=== PATIENT | male | born 1980 | race Hispanic/Latino ===

== ENCOUNTER 2018-05-03 10:05 | Emergency (ER) | payer BC ==
[2018-05-03 10:12] VITALS: BP 137/81; PULSE 68; RESP 18; TEMP 97.9; O2SAT 100; BMI 25.7
--- NOTE | 2018-05-03 10:39 | ED PDOC ---
Arrival/HPI - General Chief Complaint: Chest Pain Time Seen by Provider: 05/03/18 10:13 Historian: Patient - History of Present Illness Narrative History of Present Illness (Text): 05/03/18 10:35 37 year old male, with no significant past medical history, presents to the ED for evaluation of intermittent chest pain since yesterday. Patient states he was leaning over his child's crib and experienced an "electric shock" like chest pain lasting for a few seconds. Patient informs intermittent episodes of similar chest pain since then. Patient reports unknown family history of cardiac disease in father but denies any history of hypertension, or diabetes in self. Patient states he did not have his cholesterol level evaluated in the past. Patient denies any other associated somatic complaints. Patient denies any nausea, vomit ing, diaphoresis, dizziness or any other complaints. Patient admits to drinking wine daily but denies any smoking or illicit drug use. PMD: Dr. Thomas Time/Duration: 24 hours Symptom Onset: Gradual Symptom Course: Intermittent Activities at Onset: Light Context: Home Associated Symptoms (Text): 05/03/18 12:45 Intermittent electric shocklike chest pain since yesterday. Lasts on the order of seconds. He is currently pain-free. No dyspnea. No diaphoresis. No nausea or vomiting. No dizziness or lightheadedness. No hypertension or diabetes. There is an unknown family history of cardiac disease in his father, as he is estranged from his father. No smoking. He is comfortable other than being anxious at this time. Past Medical History - Provider Review Nursing Documentation Reviewed: Yes - Infectious Disease Hx of Infectious Diseases: None - Gastrointestinal Hx Gastroesophageal Reflux: Yes - Psychiatric Hx Substance Use: Yes - Surgical History Other/Comment: toe surgery - Anesthesia Hx Anesthesia: Yes Hx Anesthesia Reactions: No Hx Malignant Hyperthermia: No Family/Social History - Physician Review Nursing Documentation Reviewed: Yes Family/Social History: Unknown Family HX Smoking Status: Never Smoked Hx Alcohol Use: Yes Frequency of alcohol use: Socially Hx Substance Use: Yes Substance used: marijuana Allergies/Home Meds Allergies/Adverse Reactions: Allergies No Known Allergies Allergy (Verified 05/03/18 10:11) Home Medications: Home Meds Medication Instructions Recorded Confirmed Omeprazole Magnesium [Prilosec Otc] 1 tab PO PRN PRN 05/03/18 05/03/18 Review of Systems - Physician Review All systems were reviewed & negative as marked: Yes - Review of Systems Constitutional: absent: Fatigue, Fevers Respiratory: absent: SOB Cardiovascular: Chest Pain. absent: Palpitations, Syncope Gastrointestinal: absent: Abdominal Pain, Nausea, Vomiting Musculoskeletal: absent: Back Pain, Neck Pain Neurological: absent: Headache, Dizziness, Focal Weakness Endocrine: absent: Diaphoresis Physical Exam Vital Signs Reviewed: Yes Vital Signs Temp Pulse Resp BP Pulse Ox 05/03/18 10:12 97.9 F 68 18 137/81 100 Temperature: Afebrile Blood Pressure: Normal Pulse: Regular Respiratory Rate: Normal Appearance: Positive for: Other (Anxious appearing) Pain Distress: None Mental Status: Positive for: Alert and Oriented X 3 - Systems Exam Head: Present: Atraumatic, Normocephalic Pupils: Present: PERRL Extroacular Muscles: Present: EOMI Conjunctiva: Present: Normal Mouth: Present: Moist Mucous Membranes Pharnyx: No: ERYTHEMA, EXUDATE, TONSILS ENLARGED Respiratory/Chest: Present: Clear to Auscultation, Good Air Exchange. No: Respiratory Distress, Accessory Muscle Use, Tender to Palpation Cardiovascular: Present: Regular Rate and Rhythm, Normal S1, S2. No: Murmurs Abdomen: No: Tenderness, Distention, Peritoneal Signs Upper Extremity: Present: Normal Inspection. No: Cyanosis, Edema Lower Extremity: Present: Normal Inspection. No: Edema Neurological: Present: GCS=15, CN II-XII Intact, Speech Normal, Motor Func Grossly Intact Skin: Present: Warm, Dry, Normal Color. No: Rashes Psychiatric: Present: Alert, Oriented x 3, Anxious Medical Decision Making ED Course and Treatment: 05/03/18 10:41 Impression: 37 year old male presents to the Emergency department for evaluation of intermittent chest pain. Plan: -- EKG -- Labs -- Chest X-ray -- Aspirin -- Urinalysis -- Reassess and disposition Prior Visits: Notes and results from previous visits were reviewed. Progress Notes: 05/03/18 11:30 Chest X-ray, reviewed by radiologist, shows no active disease. 05/03/18 12:47 EKG shows normal sinus rhythm rate approximately [address] or T wave changes and a sinus arrhythmia. 05/03/18 12:47 Discussed in detail with Dr. Thomas who will follow up as an outpatient. Doubt that this chest pain is cardiac in nature. He will send the patient for stress test and cardiology consult. Daily baby aspirin. - Scribe Statement The provider has reviewed the documentation as recorded by the Scribe Sandra Tsai. All medical record entries made by the Scribe were at my direction and personally dictated by me. I have reviewed the chart and agree that the record accurately reflects my personal performance of the history, physical exam, medical decision making, and the department course for this patient. I have also personally directed, reviewed, and agree with the discharge instructions and disposition. Disposition/Present on Arrival - Present on Arrival Any Indicators Present on Arrival: No History of DVT/PE: No History of Uncontrolled Diabetes: No Urinary Catheter: No History of Decub. Ulcer: No History Surgical Site Infection Following: None - Disposition Have Diagnosis and Disposition been Completed?: Yes Diagnosis: Chest pain Disposition: HOME/ ROUTINE Disposition Time: 12:48 Patient Plan: Discharge Condition: GOOD Discharge Instructions (ExitCare): Chest Pain (ED) Additional Instructions: Daily baby aspirin. Follow-up with Dr. Thomas for cardiology consult and outpatient EST. Follow-up in ER as needed. Referrals: Kermit Thomas, [Primary Care Provider] - Follow up with primary Forms: [facility] (Pashto), WORK NOTE
[2018-05-03 11:00] LABS: ALB/GLOB RATIO 1.3 (1.1-1.8); ALBUMIN 4.9 g/dL (3.0-4.8); ALT/SGPT 44 U/L (7-56); AST/SGOT 42 U/L (17-59); BASO # 0.02 K/mm3 (0.0-2.0); BASO % 0.3 % (0.0-3.0); BLOOD UREA NITROGEN 19 mg/dL (7-21); CALCIUM 9.9 mg/dL (8.4-10.5); EOS # 0.1 (0.0-0.7); EOS % 1.1 % (1.5-5.0); GFR NON-AFRICAN AMERICAN > 60; HEMOGLOBIN 16.7 g/dL (14.0-18.0); LYMPH # 1.9 (1.2-3.4); LYMPH % 26.2 % (22.0-35.0); MEAN CELL VOLUME 86.6 fl (80.0-105.0); MEAN CORPUSCULAR HEMOGLOBIN 29.9 pg (25.0-35.0); MEAN CORPUSCULAR HGB CONC 34.5 g/dl (31.0-37.0); MEAN PLATELET VOLUME 9.9 fl (7.0-11.0); MONO # 0.4 (0.1-0.6); MONO % 6.2 % (1.0-6.0); RBC 5.59 10^6/uL (3.5-6.1); RED CELL DISTRIBUTION WIDTH 12.2 % (11.5-14.5); WHITE BLOOD COUNT 7.1 10^3/uL (4.5-11.0)
[2018-05-03 11:12] LABS: TROPONIN I < 0.01 ng/mL
--- NOTE | 2018-05-03 11:22 | RAD ---
Date of service: 05/03/2018 HISTORY: cp COMPARISON: No prior. FINDINGS: LUNGS: No active pulmonary disease. PLEURA: No significant pleural effusion identified, no pneumothorax apparent. CARDIOVASCULAR: No aortic atherosclerotic calcification present. Normal cardiac size. No pulmonary vascular congestion. OSSEOUS STRUCTURES: No significant abnormalities. VISUALIZED UPPER ABDOMEN: Normal. OTHER FINDINGS: None. IMPRESSION: No active disease.
[2018-05-03 12:17] LABS: URINE BILIRUBIN NEGATIVE (NEGATIVE); URINE BLOOD SMALL (NEGATIVE); URINE GLUCOSE (UA) NEGATIVE (NEGATIVE); URINE LEUKOCYTE ESTERASE NEGATIVE Leu/uL (NEGATIVE); URINE PROTEIN NEGATIVE mg/dL (<30 mg/dL); URINE UROBILINOGEN 0.2 E.U./dL (<1 E.U./dL)
[2018-05-03 12:30] LABS: URINE APPEARANCE CLEAR (CLEAR); URINE COLOR YELLOW (YELLOW)
[2018-05-03 12:32] LABS: URINE BACTERIA FEW /hpf; URINE WBC 0 - 2 /hpf (0-6)
--- NOTE | 2018-05-03 15:29 | CARD ---
APPROVED REPORT Date of service: 05/03/2018 EKG Measurement Heart [id number] <Conclusion> Normal sinus rhythm with sinus arrhythmia Normal ECG
== END 2018-05-03 13:16 | disposition home or self-care (01) ==
LOC: ED 10:05
DX: R07.9 Chest pain, unspecified (principal); K21.9 Gastro-esophageal reflux disease without esophagitis

== ENCOUNTER 2018-05-10 07:48 | Outpatient (CLI) | payer BC | END 2018-05-10 07:49 | disposition home or self-care (01) | LOC: RAD 07:48 ==

== ENCOUNTER 2018-05-11 09:35 | Outpatient (CLI) | payer BC | END 2018-05-11 09:36 | disposition home or self-care (01) | LOC: LAB 09:35 ==